=== PATIENT | female | born 1965 | race Caucasian/White ===

== ENCOUNTER 2018-04-24 11:18 | Day surgery (SDC) | payer OTHER, SELFPAY ==
--- NOTE | 2018-04-24 07:09 | W.COLOREPORT ---
Date of service: 04/24/18 Time of Service: 14:08 Colonoscopy Report Date of procedure: 04/24/18 Pre-op diagnosis general: Colon Cancer screening Post-op diagnosis procedure note: same Procedure: Colonoscopy Surgeon: Tamika Parkinson Anesthesia proc note operative: MAC (Nacho Cevallos CRNA / ASA 2) Estimated blood loss (mL): 0 Pathology: none sent Complications: None Disposition: same day Indications: Mrs. Al is a 53-year-old female who was seen in the office for her first screening colonoscopy. Risks, benefits and complications were reviewed with her and she wished to proceed. No guarantees were given or implied. Prep: Miralax/Dulcolax Procedure Start Time: 14:08 Procedure End Time: 14:44 Retraction Time: 20 minutes Findings: Normal Colonoscopy Procedure Description: After informed consent was obtained the patient was taken to the procedure room and placed in a left decubitous position. Monitors were applied and a time out was done. The patients name, date of , procedure, allergies to medications and metal in their body was reviewed. The patient was then sedated. Once sedated and comfortable a rectal exam was done. External exam was normal. Internal exam revealed a normal sphincter tone and no palpable masses. The scope was then introduced and retroflexed. No internal hemorrhoids were identified. The scope was then advanced to the cecum without difficulty. She was noted to have a tortuous colon. The TI and appendiceal orifice were identified. The prep was adequate. The scope was then slowly retracted over 20 minutes back into the rectum. The scope was removed and the patient was woken up and taken back to Same day surgery in stable condition. The patient tolerated the procedure well and there were no immediate complications. Follow up: The patient should follow up in 10 years unless they develop changes in bowel habits or other new gastrointestinal complaints.
--- NOTE | 2018-04-24 07:10 | PDOC.DSDIS_ITS ---
Discharge Plan Disposition Patient Disposition: HOME Condition: Good Discharge Details Reason For Visit: SCREENING Attending Provider: Tamika Parkinson Primary Care Provider: Lisa Gifford Home Meds and New Rx's Prescriptions: Continue desog-e.estradiol/e.estradiol [Jose (28)] 1 EACH tablet 1 tab-cap PO DAILY Qty: 1 RF: 0 triamcinolone acetonide 0.1 % cream 1 applic Topical BID PRNRF: 0 melatonin 1 mg Tablet 1 mg PO HS PRNRF: 0 Discharge Instructions Instructions: Colonoscopy (DC) Additional Instructions: Findings: Normal colon Follow up: 10 years New Medications: none Please call if you develop: fevers >101.5 Nausea or Vomiting Abdominal pain that is not transient 1. Because there will be medication in your system for the next 24 hours, you may feel a little sleepy. Your coordination will be affected. Therefore: a. Do not drive or operate dangerous equipment for 24 hours. b. Do not drink alcohol beverages for 24 hours (not even beer). c. Plan to go home and rest for the day. 2. Generally there are no restrictions on your activity after a day or so has gone by, but you may feel a bit fatigued for a few days. 3 After you arrive home you may have a light meal and return to a normal diet as you can tolerate it without feeling sick to your stomach. 4. After surgery, you may feel pain or discomfort. This should be only transient , but if it persists please contact your doctor. 5. If there are any questions regarding the findings of your procedure, please feel free to contact your doctor. 6. If you are unable to contact your doctor with a problem, contact the hospital at [phone]. 7. Continue all your regular medications unless directed otherwise. I understand the above instructions and have no questions. Signature of Patient or Responsible Adult Escort Date/Time Name of Responsible Adult Escort Signature of Nurse Date/Time Activity:: Activity as Tolerated Diet:: As Tolerated Discharge Orders Discharge Orders: Discharge Order (Routine); Ordered 04/24/18 Ordered By: Tamika Parkinson DS: Diagnosis Discharge Diagnosis (1) Normal colonoscopy: Status: Acute (2) S/P colonoscopy: Status: Acute
[2018-04-24 11:40] VITALS: BP 139/85; PULSE 86; RESP 15; TEMP 36; O2SAT 99
[2018-04-24] MEDS: Lactated Ringers 1,000 ML 80 ML IV (12:04)
[2018-04-24 15:15] VITALS: BP 138/87; PULSE 64; RESP 18; TEMP 37.1; O2SAT 98
== END 2018-04-24 15:34 | disposition home or self-care (01) ==
LOC: SUR 11:19
PROVIDERS: Visit Provider Surgery
PROC: 0DJD8ZZ Inspection of Lower Intestinal Tract, Via Natural or Artificial Opening Endoscopic (ICD-10-PCS; CPT 45378; principal; 2018-04-24 14:30)
DX: Z12.11 Encounter for screening for malignant neoplasm of colon (principal); K63.89 Other specified diseases of intestine; K21.9 Gastro-esophageal reflux disease without esophagitis
CPT/HCPCS: 45378; 81025

== ENCOUNTER 2020-05-07 17:27 | Emergency (ER) | payer OTHER, SELFPAY ==
--- NOTE | 2020-05-07 17:30 | RT.EKG_ITS ---
APPROVED REPORT Exam: Resting ECG Patient Location: E HR:73 bpm ECG Measurements Heart Rate 73 AXIS VT 153 P 53 QRSd 92 QRS 70 QT 386 T 37 QTc 426 Conclusion Sinus rhythm...normal P axis, V-rate 60- 99 Probable left atrial enlargement...P >50mS, <-0.10mV V1 I have reviewed and interpreted ECG and agree with software generated interpretation.
[2020-05-07 17:41] VITALS: BP 172/90; PULSE 78; RESP 16; TEMP 36.8; O2SAT 98
[2020-05-07 18:01] LABS: Abs Immature Grans 0.02 10^3/uL (0.0-0.06); Absolute Basophil Count 0.08 10^3/uL (0.0-0.2); Absolute Eosinophil Count 0.15 10^3/uL (0.0-0.7); Absolute Lymphocyte Count 2.39 10^3/uL (1.2-3.4); Absolute Monocyte Count 0.57 10^3/uL (0.1-0.8); Absolute Neutrophil Count 4.37 10^3/uL (1.2-6.7); Basophils % 1.1; HGB 14.9 g/dL (11.2-15.7); Immature Grans % 0.3; Lymphocytes % 31.5; MCH 30.8 pg (27.0-33.0); MCHC 33.9 % (32.0-36.0); MCV 91.1 fL (80-95); Monocytes % 7.5; Neutrophils % 57.6; Nucleated RBC 0 %; Platelet Count 212 10^3/uL (130-400); RBC 4.83 10^6/uL (3.93-5.22); RDW 11.9 % (11.7-14.6); RDW-SD 39.3 fL; WBC 7.58 10^3/uL (4.4-10.8)
--- NOTE | 2020-05-07 18:15 | DI.CT_ITS ---
EXAM: CT CHEST PE ABD PELVIS W CLINICAL HISTORY: heartburn, gerd, r/o acute disease. TECHNIQUE: Imaging Protocol: Axial CT angiography was performed with multi-slice acquisition and mu lti-planar and/or 3D reconstructions. CONTRAST MATERIAL: Intravenous: Omnipaque 350 Contrast volume:100 cc COMPARISON: No exams were available for comparison FINDINGS: Pulmonary Arteries: No evidence of filling defect to suggest pulmonary emboli. No evidence of pulmona ry infarction and no pleural effusions. No pneumothorax. Tracheobronchial tree: Patent where visualized. Mediastinum and Kiara: There is no hilar nor mediastinal adenopathy. No axillary adenopathy. Pulmonary parenchyma: No consolidation or dominant measurable mass. Pleura: No effusion or pneumothorax. Heart: Heart size is normal. There is no pericardial effusion. No shift of the interventricular sep christiano. Caliber of the thoracic aorta is within normal limits. Incidentally noted is left vertebral ar tyler arising independently off of the aortic arch instead of arising in conventional fashion of the l eft subclavian artery. This is a common developmental variant . Aorta: As above. In the abdomen there is no ascites. There are no focal hepatic lesions no dilatation of intrahepatic ducts. No obvious gallbladder pathology. CBD is not dilated. No significant focal findings in the pancreas. The spleen is not enlarged. The splenic and portal veins are patent. There are no adren al masses. The left kidney is not seen and probably not developed. No obvious left renal artery is noted. Righ t kidney is slightly prominent in size which is most probably compensatory. There is a solitary righ t renal artery which is patent and without evidence of calcified plaque nor evidence of right renal a rtery stenosis left renal artery is not seen.. There is no cyst or mass in the right kidney. No yanique iectasis. Right ureter size is minimally prominent but this may be compensatory. Urinary bladder is slightly distended. No calculi nor masses within its lumen. The abdominal aorta is not enlarged and there is no para-aortic adenopathy. In the pelvis there is an IUD in the endometrial cavity. Uterus size is normal. There are no abnorm al adnexal masses nor free fluid in the pelvis. There is no intrapelvic or inguinal adenopathy. Anterior abdominal wall is unremarkable with no significant anterior abdominal wall hernia. There is no bowel obstruction or free air. Bone windows revealed no evidence of acute fractures nor lytic osseous lesions. There is a nonacute fracture of the posterior right 11 rib. IMPRESSION: No evidence of pulmonary embolism,, pulmonary infarction, nor pleural effusions.. No significant pul monary infiltrates. Nonacute fracture of the posterior right 11th rib. There is a solitary right kidney. The left kidney is non developed and there is no left renal artery identified. The solitary right kidney appears slightly prominent in size which is most probably com pensatory. There is mild prominence of the diameter of the right ureter which may be related to the fact that the bladder appears somewhat distended. Other possibility would be because of compensatory right renal function in the absence of the left kidney. IUD in satisfactory position within the uterine cavity. No free fluid in the pelvis nor elsewhere in the abdomen RADIATION DOSE DELIVERED: 1,144.88mGy.cm Total DLP DATA REPOSITORY: All CT scans at this facility are submitted to the National Radiology Data Registry (NRDR) Dose Index Registry (DIR) with the [employer] [place] [employer] (ACR). RADIATION OPTIMIZATION: All CT scans at this facility use at least one of these dose optimization te chniques: automated exposure control; mA and/or kV adjustment per patient size (includes targeted exa ms where dose is matched to clinical indication); or iterative reconstruction.
--- NOTE | 2020-05-07 18:26 | W.ED.GENAD ---
Discharge Plan Disposition Patient Disposition: HOME Condition: Improving Discharge Details Clinical Impression: Heartburn, Atypical chest pain Primary Care Provider: Lisa Gifford ED Provider: Gayla Persaud Home Meds and New Rx's Prescriptions: Continued Kyleena 17.5 mcg/24 hrs (5 yrs) 19.5 mg intrauterine device 1 device IY ONCE RF: 0 triamcinolone acetonide 0.1 % cream 1 applic Topical BID PRNRF: 0 Discharge Instructions Instructions: Chest Pain (ED), GERD (Gastroesophageal Reflux Disease) (ED) Additional Instructions: Drink plenty of fluids and get plenty of rest. Take an nrkd-vhf-drupxsk H2 jaycee such as Pepcid or a proton pump inhibitor such as Prilosec, Prevacid or Nexium once daily as directed for the next 2 weeks. Call the general surgery office to schedule a follow-up appointment for reevaluation if your symptoms persist or worsen. Return immediately to the emergency department if you develop any worsening or new concerning symptoms. Referrals: Keyona Collado DO [OSTEOPATHIC DOCTOR] - Discharge Data Discharge Date/Time-TO BE ENTERED AT DEPARTURE: 05/07/20 21:03 Discharge Physician: Gayla Persaud Medical Decision Making 1750 -- 55-year-old female with a history of GERD presents for symptoms of heartburn, belching and indigestion for the past month. States it is worse at night and occasionally has bad taste in mouth. Denies fever, cough, shortness of breath, dizziness. She recently traveled to [place] and her quarantine is finished on Tuesday. Her blood pressure is mildly elevated but otherwise her vitals are within normal limits. Her EKG notes a rate of 73, sinus with no acute ST-T wave ischemic changes. Suspect most likely GERD, gastritis, esophagitis, peptic ulcer disease. History and presentation not consistent with PE or dissection. Considering patient's age, will obtain a cardiac work-up and CT chest and abdomen and give a GI cocktail and Pepcid and reassess. 1999 -- Labs and imaging reviewed and unremarkable for acute findings. Patient was aware of her left atrophic kidney. She has normal renal function. She was reassessed and she feels significantly improved. She is advised to take an H2 jaycee or PPI once daily for the next 2 weeks. She was placed on surgery follow-up list for reevaluation if needed. Usual and customary return precautions given prior to discharge. Medical Records Medical records reviewed: Yes I reviewed the patient's medical records. Imaging Data Radiologic Study: Radiologist's impression: CT Angiography Chest With Contrast Exam date and time: 05/07/2020 7:26 PM Age: 55 years old Clinical indication: Other: Heartburn. ; Abdominal pain TECHNIQUE: Imaging protocol: Computed tomographic angiography of the chest with intravenous contrast. 3D rendering (Not supervised by radiologist): MIP and/or 3D reconstructed images were created by the technologist. COMPARISON: No relevant prior studies available. FINDINGS: Pulmonary arteries: No pulmonary embolism identified. Aorta: No thoracic aortic aneurysm or dissection. Thyroid: Thyroid gland partially excluded from view but grossly unremarkable through its visualized portion. Lungs: No pulmonary consolidation. Pleural space: No pleural effusion or pneumothorax. Heart: Normal-sized heart. Mediastinal space: Normal-appearing thymic tissue noted in the anterior mediastinum. Lymph nodes: No pathologically enlarged mediastinal or hilar lymph nodes. Bones/joints: Old fracture through the posterior aspect of the right 11th rib. No acute fracture seen among the bones of the chest. Mild spinal degenerative change with early discogenic degeneration at several levels. Soft tissues: No gross soft tissue mass or fluid collection seen in the chest wall. IMPRESSION: No active disease is seen in the chest. No pulmonary embolism identified. CT Angiography Abdomen With Contrast Exam date and time: 05/07/2020 7:26 PM Age: 55 years old Clinical indication: Other: Heartburn. ; Abdominal pain TECHNIQUE: Imaging protocol: Computed tomographic angiography images of the abdomen with intravenous contrast material. 3D rendering (Not supervised by radiologist): MIP and/or 3D reconstructed images were created by the technologist. COMPARISON: No relevant prior studies available. FINDINGS: Aorta: Normal caliber abdominal aorta. No abdominal aortic aneurysm or dissection. Celiac trunk and mesenteric arteries: Celiac artery and its branches widely patent. Superior mesenteric artery widely patent. Diminutive inferior mesenteric artery, grossly patent, as seen. Renal arteries: Normal-appearing right renal artery. Marked atrophy of the left kidney with only a small residual renal nubbin in the renal fossa. Left renal artery not confidently identified. Right iliac arteries: Right common iliac, internal iliac, and external iliac arteries widely patent. Minimal atherosclerotic calcification associated with the right internal iliac artery. Left iliac arteries: Left common iliac, internal iliac, and external iliac arteries widely patent. Minimal atherosclerotic calcification associated with the left internal iliac artery. Liver: Normal appearing liver. Gallbladder and bile ducts: Normal appearing gallbladder. No calcified gallstones. No biliary dilatation. Pancreas: Normal appearing pancreas. Spleen: Normal appearing spleen. Adrenals: Adrenal glands partially obscured but grossly unremarkable, as seen. Kidneys and ureters: Marked atrophy of the left kidney with only a small residual renal nubbin present in the left renal fossa, image 22 of series 14. Normal-appearing right kidney. Mild prominence of the right renal collecting system with mild diffuse right-sided ureterectasis. Stomach and bowel: No oral contrast. Stomach partially decompressed. No small bowel dilatation to suggest obstruction. Normal-appearing colon. No evidence of diverticulitis or colitis. Appendix: Normal appendix. Lymph nodes: No pathologically enlarged mesenteric, retroperitoneal, or pelvic sidewall lymph nodes. Intraperitoneal space: No gross ascites or free air. Reproductive: Anteverted uterus, normal in size. T-shaped intrauterine device in situ. Suggestion of a 2.2 cm leiomyoma at the uterine fundus, not well demonstrated by the CT exam. Normal-sized ovaries. 1.5 cm dominant left ovarian follicle/cyst. Suggestion of a 1.2 cm dominant right ovarian follicle/cyst, not well evaluated. Bladder: Prominent distention of the urinary bladder. Bones/joints: No acute fracture seen among the bones of the abdomen or pelvis. Soft tissues: No significant ventral or inguinal hernia. IMPRESSION: 1. No abdominal aortic aneurysm or dissection. 2. Prominent distention of the urinary bladder. This appearance may represent a normal full bladder; however, correlation with micturition history is recommended to exclude delayed bladder emptying, urinary retention, or bladder outlet obstruction. 3. Mild prominence of the right renal collecting system with mild diffuse right-sided ureterectasis, probably on the basis of bladder distention although clinical correlation is recommended to exclude possibility of a urinary tract infection. 4. Marked atrophy of the left kidney with only a small residual renal nubbin present in the left renal fossa. 5. Suggestion of a 2.2 cm leiomyoma at the uterine fundus. T-shaped intrauterine device in situ. Dominant ovarian follicles, as above. No gross pelvic fluid. Lab Data Lab results reviewed: Yes I reviewed the patient's lab results. Labs: Laboratory Tests Range/Units 05/07/20 05/07/20 17:55 17:55 WBC (4.4-10.8) 10^3/uL 7.58 RBC (3.93-5.22) 10^6/uL 4.83 Hgb (11.2-15.7) g/dL 14.9 Hct (36.0-46.0) % 44.0 MCV (80-95) fL 91.1 MCH (27.0-33.0) pg 30.8 MCHC (32.0-36.0) % 33.9 RDW (11.7-14.6) % 11.9 Plt Count (130-400) 10^3/uL 212 MPV (8.0-11.0) fL 10.0 Immature Gran % 0.3 Neutrophils % 57.6 Lymphocytes % 31.5 Monocytes % 7.5 Eosinophils % 2.0 Basophils % 1.1 Nucleated RBC % % 0 Absolute Neutrophils (1.2-6.7) 10^3/uL 4.37 Absolute Lymphocytes (1.2-3.4) 10^3/uL 2.39 Absolute Monocytes (0.1-0.8) 10^3/uL 0.57 Absolute Eosinophils (0.0-0.7) 10^3/uL 0.15 Absolute Basophils (0.0-0.2) 10^3/uL 0.08 Sodium (136-145) mmol/L 140 Potassium (3.5-5.1) mmol/L 3.8 Chloride (98-107) mmol/L 104 Carbon Dioxide (21.0-32.0) mmol/L 31.0 Anion Gap (3-11) mmol/L 5.0 BUN (7-18) mg/dL 16 Creatinine (0.55-1.02) mg/dL 0.89 Estimated GFR/1.73 m2 (mL/min/1.73m2) >= 60.00 Glucose (74-106) mg/dL 100 Calcium (8.5-10.1) mg/dL 10.1 Magnesium (1.8-2.4) mg/dL 1.9 Total Bilirubin (0.2-1.0) mg/dL 0.7 AST (15-37) U/L 13 L ALT (14-59) U/L 20 Alkaline Phosphatase (46-116) U/L 100 Troponin I (<0.06) ng/mL < 0.05 Total Protein (6.4-8.2) g/dL 7.5 Albumin (3.4-5.0) g/dL 4.1 Lipase (73-393) U/L 175 ECG Data Attestation: I personally reviewed and interpreted this ECG (s) as follows: Interpretation: Rate of 73, sinus, no acute ST elevation or depression. RI 153. QRS 92. QTc 426. HPI General Mode of arrival: ambulatory. Date/Time Provider Initiated Documentation: 05/07/20 17:40. Limitations to Documentation: no limitations. Information obtained by: patient. HPI Narrative: Pt is a 55yo F who presents to the ED w/ a c/o heartburn for the past month. Pt states the pain is intermittent, aching and burning with occasional bad taste in her mouth. She denies any relief with Tums. She denies any radiation of pain to her back. She denies any fever, cough, shortness of breath, nausea, vomiting, diarrhea, dizziness. She states the pain is occasionally in the epigastrium and radiating up to her chest. She admits to an indigestion feeling in addition to belching. She states sometimes her symptoms are worse with food but otherwise denies any significant aggravating or alleviating factors. She states she recently traveled to [place] and is under quarantine until Tuesday. Related Data Home Medications Medication Instructions Recorded Confirmed triamcinolone acetonide 1 applic TOPICAL BID PRN 04/21/18 07/03/19 levonorgestrel 1 device IY ONCE 07/03/19 07/03/19 Allergies Allergy/AdvReac Type Severity Reaction Status Date / Time Sulfa (Sulfonamide Allergy Intermediate Rash Verified 05/07/20 17:49 Antibiotics) General Stated Complaint: Chest Pain UMU: 2 Review of Systems All systems reviewed & are unremarkable except as noted in HPI and below Constitutional Constitutional: Reports as per HPI, Denies chills and Denies fever(s) Eyes Eyes: Denies blurry vision ENT Ears, Nose, Mouth, and Throat: Denies dizziness, Denies sore throat and Denies throat swelling Cardiovascular Cardiovascular: Reports chest pain and Denies dyspnea Respiratory Respiratory: Denies cough and Denies dyspnea Gastrointestinal Gastrointestinal: Denies abdominal pain, Denies diarrhea and Denies vomiting Genitourinary Genitourinary: Denies hematuria and Denies dysuria Musculoskeletal Musculoskeletal: Denies back pain and Denies numbness Integumentary/Breasts Skin/Breast: Denies lesions and Denies rash Neurologic Neurologic: Denies dizziness, Denies localized weakness and Denies numbness Allergic/Immunologic Allergic/Immunologic: Denies throat swelling [facility] Medical History (Updated 05/07/20 @ 20:32 by Gayla Persaud DO) Abdominal discomfort, bilateral lower quadrant (12/15/17) Benign ovarian cyst Depression (12/15/17) Dysmenorrhea Gastroesophageal reflux disease (12/15/17) Hand tingling Hip pain, chronic Left hip > right Insomnia (01/19/18) Knee pain, left Pelvic pressure in female (12/15/17) Single kidney (01/19/18) Surgical History S/P colonoscopy (~04/24/18) normal colonoscopy. 10 year follow up. Family History (Updated 07/04/19 @ 10:30 by Serjio Flood) Mother Diabetes Brain aneurysm Father Prostate cancer Throat cancer Sister No problems noted. Maternal Grandfather Myocardial infarction Paternal Grandfather Kidney failure Cancer Maternal Grandmother Colon cancer Paternal Grandmother No problems noted. Social History (Updated 07/04/19 @ 10:28 by Serjio Flood) Smoking/Tobacco Use Status: Never Smoking risk assessment performed?: Yes Alcohol Intake: current Alcohol Intake frequency: a few times a week Alcohol type: beer, wine and hard liquor Drug use: Never Substance use type: does not use Counseling given: No Counseling provided: none Caregiver/Support person: No Household members: spouse Housing: house Number of Children: 0 Communication Needs: None Pets and animals: Yes Pets and animals: cat(s), dog(s), horse(s) and farm animals Sexually active: Yes Current gender identity: male What is your relationship status?: How often do you talk on the phone with friends or family?: once per week How often do you get together with friends or relatives?: decline to answer How often do you attend samaritan or zoroastrian services?: 1-3 times per year Do you belong to any clubs or organized social groups?: no Panel score (0-1 are the most socially isolated patients): 1 What type of physical activity do you participate in: decline to answer Duration: 30-45 minutes/day Frequency: daily Malaika/Religious: No preference Special malaika needs: No Seatbelt use: always Helmet use: Yes Helmet use: always Drive intox or ride w/intox pick up and delivery driver: No Do you feel safe at home: Yes Do you feel safe in your relationship?: Yes Exam Const General: cooperative, healthy appearing and no acute distress [facility] Head: normal to inspection Face and sinus: normal facial exam Eyes General: appearance normal, both eyes and all related structures EOM: EOM intact bilaterally Neck Neck: normal visual inspection and No submandibular swelling Lymphatic: no lymphadenopathy noted Chest Chest: normal inspection of the chest and no tenderness Resp Effort & Inspection: normal respiratory effort and able to speak in complete sentences Auscultation: clear to auscultation bilaterally Cardio Rate: regular rate Rhythm: regular rhythm GI Inspection: normal to inspection Palpation: soft, not firm, not rigid and nontender Auscultation: normal bowel sounds Skin General skin exam: no rashes or lesions noted Neuro General: patient alert, patient awake and patient oriented x3 Cognition: normal cognition Speech: speech normal Motor: muscle tone normal throughout Sensory Exam: no sensory deficits noted Extrem General: normal to inspection, full ROM, capillary refill normal, no calf tenderness bilaterally and no edema Psych Appearance: grossly normal Mental Status: mental status grossly normal Speech and Movement: speech and movement normal Affect: normal affect Course Vital Signs Vital signs: Vital Signs Temperature 98.2 F 05/07/20 17:41 Pulse 78 05/07/20 17:41 Respiratory Rate 16 05/07/20 17:41 Blood Pressure 172/90 H 05/07/20 17:41 Pulse Oximetry 98 05/07/20 17:41 Temperature 98.2 F 05/07/20 17:41 Temperature Source Temporal Artery Scan 05/07/20 17:41 Pulse 78 05/07/20 17:41 Respiratory Rate 16 05/07/20 17:41 Respiratory Effort 05/07/20 18:02 Blood Pressure 172/90 H 05/07/20 17:41 Blood Pressure Position Supine 05/07/20 17:41 Pulse Oximetry 98 05/07/20 17:41 Oxygen Delivery Method Room Air 05/07/20 17:41 Oxygen Flow Rate 0 05/07/20 17:41 Pain Level 5 05/07/20 17:41
[2020-05-07 18:36] LABS: ALT 20 U/L (14-59); AST 13 U/L (15-37); Albumin 4.1 g/dL (3.4-5.0); Alkaline Phosphatase 100 U/L (46-116); BUN 16 mg/dL (7-18); Bilirubin, Total 0.7 mg/dL (0.2-1.0); CREATININE 0.89 mg/dL (0.55-1.02); Calcium 10.1 mg/dL (8.5-10.1); Chloride 104 mmol/L (98-107); Glucose 100 mg/dL (74-106); Lipase 175 U/L (73-393); Magnesium 1.9 mg/dL (1.8-2.4); Potassium 3.8 mmol/L (3.5-5.1); Sodium 140 mmol/L (136-145); Total Protein 7.5 g/dL (6.4-8.2)
[2020-05-07 18:53] LABS: Troponin I < 0.05 ng/mL (<0.06)
[2020-05-07] MEDS: Normal Saline 1,000 ML 1000 ML IV (18:58)
[2020-05-07] MEDS: Omnipaque 350 MG/ML 100 ML BTL IJ (19:35)
[2020-05-07] MEDS: Normal Saline - Diluent 50 ML VIAL IV (19:36)
[2020-05-07] MEDS: FAMOTIDINE 20 MG/50 ML BAG 200 MG IVPB (19:38)
--- NOTE | 2020-05-07 20:11 | DI.VRAD_ITS ---
PROCEDURE INFORMATION: Exam: CT Angiography Chest With Contrast Exam date and time: 05/07/2020 7:26 PM Age: 55 years old Clinical indication: Other: Heartburn. ; Abdominal pain TECHNIQUE: Imaging protocol: Computed tomographic angiography of the chest with intravenous contrast. 3D rendering (Not supervised by radiologist): MIP and/or 3D reconstructed images were created by the technologist. COMPARISON: No relevant prior studies available. FINDINGS: Pulmonary arteries: No pulmonary embolism identified. Aorta: No thoracic aortic aneurysm or dissection. Thyroid: Thyroid gland partially excluded from view but grossly unremarkable through its visualized portion. Lungs: No pulmonary consolidation. Pleural space: No pleural effusion or pneumothorax. Heart: Normal-sized heart. Mediastinal space: Normal-appearing thymic tissue noted in the anterior mediastinum. Lymph nodes: No pathologically enlarged mediastinal or hilar lymph nodes. Bones/joints: Old fracture through the posterior aspect of the right 11th rib. No acute fracture seen among the bones of the chest. Mild spinal degenerative change with early discogenic degeneration at several levels. Soft tissues: No gross soft tissue mass or fluid collection seen in the chest wall. IMPRESSION: No active disease is seen in the chest. No pulmonary embolism identified. PROCEDURE INFORMATION: Exam: CT Angiography Abdomen With Contrast Exam date and time: 05/07/2020 7:26 PM Age: 55 years old Clinical indication: Other: Heartburn. ; Abdominal pain TECHNIQUE: Imaging protocol: Computed tomographic angiography images of the abdomen with intravenous contrast material. 3D rendering (Not supervised by radiologist): MIP and/or 3D reconstructed images were created by the technologist. COMPARISON: No relevant prior studies available. FINDINGS: Aorta: Normal caliber abdominal aorta. No abdominal aortic aneurysm or dissection. Celiac trunk and mesenteric arteries: Celiac artery and its branches widely patent. Superior mesenteric artery widely patent. Diminutive inferior mesenteric artery, grossly patent, as seen. Renal arteries: Normal-appearing right renal artery. Marked atrophy of the left kidney with only a small residual renal nubbin in the renal fossa. Left renal artery not confidently identified. Right iliac arteries: Right common iliac, internal iliac, and external iliac arteries widely patent. Minimal atherosclerotic calcification associated with the right internal iliac artery. Left iliac arteries: Left common iliac, internal iliac, and external iliac arteries widely patent. Minimal atherosclerotic calcification associated with the left internal iliac artery. Liver: Normal appearing liver. Gallbladder and bile ducts: Normal appearing gallbladder. No calcified gallstones. No biliary dilatation. Pancreas: Normal appearing pancreas. Spleen: Normal appearing spleen. Adrenals: Adrenal glands partially obscured but grossly unremarkable, as seen. Kidneys and ureters: Marked atrophy of the left kidney with only a small residual renal nubbin present in the left renal fossa, image 22 of series 14. Normal-appearing right kidney. Mild prominence of the right renal collecting system with mild diffuse right-sided ureterectasis. Stomach and bowel: No oral contrast. Stomach partially decompressed. No small bowel dilatation to suggest obstruction. Normal-appearing colon. No evidence of diverticulitis or colitis. Appendix: Normal appendix. Lymph nodes: No pathologically enlarged mesenteric, retroperitoneal, or pelvic sidewall lymph nodes. Intraperitoneal space: No gross ascites or free air. Reproductive: Anteverted uterus, normal in size. T-shaped intrauterine device in situ. Suggestion of a 2.2 cm leiomyoma at the uterine fundus, not well demonstrated by the CT exam. Normal-sized ovaries. 1.5 cm dominant left ovarian follicle/cyst. Suggestion of a 1.2 cm dominant right ovarian follicle/cyst, not well evaluated. Bladder: Prominent distention of the urinary bladder. Bones/joints: No acute fracture seen among the bones of the abdomen or pelvis. Soft tissues: No significant ventral or inguinal hernia. IMPRESSION: 1. No abdominal aortic aneurysm or dissection. 2. Prominent distention of the urinary bladder. This appearance may represent a normal full bladder; however, correlation with micturition history is recommended to exclude delayed bladder emptying, urinary retention, or bladder outlet obstruction. 3. Mild prominence of the right renal collecting system with mild diffuse right-sided ureterectasis, probably on the basis of bladder distention although clinical correlation is recommended to exclude possibility of a urinary tract infection. 4. Marked atrophy of the left kidney with only a small residual renal nubbin present in the left renal fossa. 5. Suggestion of a 2.2 cm leiomyoma at the uterine fundus. T-shaped intrauterine device in situ. Dominant ovarian follicles, as above. No gross pelvic fluid. Dictated and Authenticated by: Olivier La MD. Ordering:RAMIN Shukla MD
[2020-05-07] MEDS: Omeprazole 20 MG CAPCR PO (21:13)
--- NOTE | 2020-05-08 07:27 | NUR.NOTE ---
[facility] to [facility]:
== END 2020-05-07 21:03 | disposition home or self-care (01) ==
PROVIDERS: Emergency Provider Physician Assistant
DX: R12 Heartburn (principal); R07.89 Other chest pain; K21.9 Gastro-esophageal reflux disease without esophagitis
CPT/HCPCS: 36415; 71275; 74177; 80053; 81025; 83690; 93005; 96361; 96374; 99285; 83735; 84484; 85025; 93010; J3490

== ENCOUNTER → 2020-05-30 11:56 | Outpatient (CLI) | payer OTHER, SELFPAY ==
--- NOTE | 2020-05-30 10:30 | DI.RAD_ITS ---
EXAM: XR WRIST RT COMPLETE CLINICAL HISTORY: thumb pain. TECHNIQUE: 2D digital imaging was performed. COMPARISON: No exams were available for comparison FINDINGS: BONES: No acute fracture is present. No bony destructive lesion is seen. JOINTS: The carpal bones are normally aligned. Mild hypertrophic changes are seen at the 1st CMC join t. SOFT TISSUE: Normal. 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 DATA REPOSITORY: RADIATION DOSE DELIVERED:
--- NOTE | 2020-05-30 10:30 | DI.RAD_ITS ---
EXAM: XR SHOULDER LT COMPLETE 2+V CLINICAL HISTORY: shoulder pain. TECHNIQUE: 2D digital imaging was performed. COMPARISON: No exams were available for comparison FINDINGS: BONES: No acute fracture is present. No bony destructive lesion is seen. JOINTS: No dislocation present. SOFT TISSUE: Normal. IMPRESSION: Unremarkable radiographs of the left shoulder. DATA REPOSITORY: RADIATION DOSE DELIVERED:
== END ==
PROVIDERS: Visit Provider Physician Assistant
DX: M18.11 Unilateral primary osteoarthritis of first carpometacarpal joint, right hand (principal); M25.512 Pain in left shoulder
CPT/HCPCS: 73030; 73110

== ENCOUNTER 2020-07-11 01:50 | Outpatient (CLI) | payer OTHER, SELFPAY ==
[2020-07-12 11:57] LABS: COVID-19 RT-PCR UVMMC Result Negative (Negative)
== END 2020-07-11 02:10 ==
DX: Z11.52 Encounter for screening for COVID-19 (principal)
CPT/HCPCS: U0003

== ENCOUNTER 2023-09-28 11:33 | Outpatient (REF) | payer OTHER, SELFPAY ==
[2023-09-28 13:58] LABS: HGB 14.8 g/dL (11.2-15.7); MCH 30.6 pg (27.0-33.0); MCHC 34.4 % (32.0-36.0); MCV 89 fL (80-95); MPV 10.5 fL (8.0-11.0); Platelet Count 247 10^3/uL (130-400); RBC 4.83 10^6/uL (3.93-5.22); RDW 11.9 % (11.7-14.6); RDW-SD 39.1 fL; WBC 6.96 10^3/uL (4.4-10.8)
[2023-09-28 16:21] LABS: AST 17 U/L (15-37); Alkaline Phosphatase 90 U/L (46-116); Anion Gap 11.4 mmol/L (3-11); BUN 18 mg/dL (7-18); Bilirubin, Total 0.8 mg/dL (0.2-1.0); CO2 26.6 mmol/L (21.0-32.0); CREATININE 0.8 mg/dL (0.55-1.02); Calcium 9.6 mg/dL (8.5-10.1); Chloride 107 mmol/L (98-107); Estimated GFR 85.89 (mL/min/1.73m2); Glucose 93 mg/dL (74-106); HDL Cholesterol 60 mg/dL (40-60); Potassium 4.2 mmol/L (3.5-5.1); Sodium 145 mmol/L (136-145); Total Protein 6.9 g/dL (6.4-8.2); Triglyceride 208 mg/dL (<150)
[2023-09-28 17:19] LABS: ALT 35 U/L (14-59); Calculated LDL 155 mg/dL (<100); Cholesterol 256 mg/dL (<200)
[2023-09-29 09:58] LABS: HIV-1/2 Ag & Ab Screen Negative (Negative)
[2023-09-29 10:25] LABS: Hepatitis C Ab w Rflx HCV PCR Negative (Negative)
== END 2023-09-28 11:34 | disposition home or self-care (01) ==
LOC: LBN 11:33
PROVIDERS: PCP Nurse Practitioner Family; Visit Provider Nurse Practitioner Family
DX: G47.00 Insomnia, unspecified (principal); Z13.220 Encounter for screening for lipoid disorders; Z11.4 Encounter for screening for human immunodeficiency virus [HIV]; Z11.59 Encounter for screening for other viral diseases
CPT/HCPCS: 80053; 80061; 85027; 86803; 87389

== ENCOUNTER 2023-09-30 15:10 | Outpatient (REF) | payer OTHER, SELFPAY ==
[2023-09-30 21:33] LABS: COMMENT (LAB VIEW ONLY) 25.13 mg/dL
== END 2023-09-30 15:11 | disposition home or self-care (01) ==
LOC: LBN 15:10
PROVIDERS: PCP Nurse Practitioner Family; Visit Provider Nurse Practitioner Family
DX: I10 Essential (primary) hypertension (principal)
CPT/HCPCS: 82043; 82570